=== PATIENT | female | born 1965 | race Caucasian/White ===

== ENCOUNTER 2017-02-21 22:43 | Emergency (ER) | payer OTHER ==
[~2017-02-21] VITALS: Ht 170.2 cm; Wt 76.7 kg
[~2017-02-21 22:43] MED LIST: CALM PO; CHOL200026 PO; PROG100C6 TP; SHAKEOLOGY PO; [UNRECOGNIZED DRUG - CODE] IH
[2017-02-21 23:13] VITALS: BP 164/83; PULSE 79; RESP 16; TEMP 98.2; O2SAT 98; Ht 170.2 cm; Wt 76.7 kg
[2017-02-21] MEDS ORDERED: OMEG100017 PO (23:35)
[2017-02-21] MEDS ORDERED: MAGN400C PO (23:35)
[2017-02-21] MEDS ORDERED: [UNRECOGNIZED DRUG - CODE] PO (23:39)
[2017-02-21] MEDS ORDERED: [UNRECOGNIZED DRUG - OTHER] PO (23:39)
[2017-02-21] MEDS ORDERED: HYDROCODONE/APAP 5 mg/325 mg TABLET PO ONE (23:45)
[2017-02-21] MEDS ORDERED: ONDANSETRON ODT 4 MG TAB PO ONE (23:45)
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
--- NOTE | 2017-02-22 00:15 | NUR ---
PROVIDER DR OREILLY IN ROOM POST PAIN MEDICATION TO FURTHER ASSESS PT.
[2017-02-22] MEDS ORDERED: ONDA4TAB7 PO (00:24)
[2017-02-22] MEDS ORDERED: HYDR-4246 PO (00:24)
[2017-02-22] MEDS ORDERED: HYDROCODONE/APAP 5/325 (PrePack) SENT HOME ONE (00:30)
[2017-02-22] MEDS ORDERED: ONDANSETRON ODT 4mg #3 (PrePack) SENT HOME ONE (00:30)
--- NOTE | 2017-02-22 00:38 | NUR ---
DEPART PT IS DISCHARGED AT THIS TIME, INSTRUCTIONS ARE REVIEWED AND UNDERSTANDING IS VOICED. PT LEAVES AMBULATORY WITH HER .
== END 2017-02-22 00:38 | disposition home or self-care (01) ==
LOC: ED 22:43
DX: T23.252A Burn of second degree of left palm, initial encounter (principal); T23.222A Burn of second degree of single left finger (nail) except thumb, initial encounter; T23.212A Burn of second degree of left thumb (nail), initial encounter; T31.0 Burns involving less than 10% of body surface; X15.3XXA Contact with hot saucepan or skillet, initial encounter; Y93.G3 Activity, cooking and baking; Y92.000 Kitchen of unspecified non-institutional (private) residence as the place of occurrence of the external cause; Y99.8 Other external cause status